=== PATIENT | male | born 1945 | race Caucasian/White ===

== ENCOUNTER 2016-08-22 05:11 | Emergency (ER) | payer MEDICARE, OTHER | END 2016-08-22 06:28 | disposition home or self-care (01) | LOC: ER 05:11 | DX: J44.1 Chronic obstructive pulmonary disease with (acute) exacerbation (principal); E11.9 Type 2 diabetes mellitus without complications; I10 Essential (primary) hypertension; Z95.1 Presence of aortocoronary bypass graft; R05 Cough; Z88.6 Allergy status to analgesic agent; Z79.01 Long term (current) use of anticoagulants | CPT/HCPCS: 94664; 96372; 99282-25; 99283; J2930 ==